=== PATIENT | female | born 1965 | race Caucasian/White ===

== ENCOUNTER → 2016-11-25 | Outpatient (CLI) | payer OTHER | LOC: FIMAGING 14:01 | DX: Z12.31 Encounter for screening mammogram for malignant neoplasm of breast (principal) | CPT/HCPCS: G0202 ==

== ENCOUNTER → 2018-01-01 | Outpatient (CLI) | payer OTHER | LOC: FIMAGING 12:19 | PROVIDERS: ATTEND Obstetrics & Gynecology Gynecology | DX: Z12.31 Encounter for screening mammogram for malignant neoplasm of breast (principal) ==

== ENCOUNTER → 2019-01-03 | Outpatient (CLI) | payer OTHER | LOC: FIMAGING 07:33 ==